=== PATIENT | female | born 1990 | race Caucasian/White ===

== ENCOUNTER 2024-10-11 07:32 | Outpatient (CLI) | payer SELFPAY ==
[2024-10-11 07:45] VITALS: BP 110/61; PULSE 83; TEMP 36.6
--- NOTE | 2024-10-11 08:18 | CRLHL7_ITS ---
For Patients: As a result of the Century Cures Act, medical imaging exams and procedure reports are released immediately into your electronic medical record. You may view this report before your referring provider. If you have questions, please contact your health care provider. Indication: Spotting. Assess cervical length and placental location. Technique: Sonography was performed limited to only that which is identified below. Comparison: None Findings: Single live intrauterine . heart rate is 142 beats per minute which is normal. The placenta is posterior. There is no previa. The placental edge is 6.5 centimeters from the IO The cervical length is 3 centimeters. The placenta is closed. Impression: 1. There is a single live intrauterine . Current position is oblique with the head superior and to maternal right. 2. heart rate is 142 beats per minute which is normal. The placenta is posterior. There is no previa. The placenta ends 6.5 centimeters from the os 3. Cervical length is 3 centimeters. The os is closed. Dictated by Adis Nichols MD @ 10/11/2024 9:26:18 AM (Electronically Signed)
[2024-10-11 08:49] LABS: Appearance Urine Clear (Clear); Bilirubin Urine Negative (Negative); Blood Urine 1+ (Negative); Color Urine Yellow (Yellow); Glucose Urine Negative (Negative); Ketones Urine Negative (Negative); Leukocyte Esterase Urine Trace (Negative); Nitrite Urine Negative (Negative); Protein Urine Negative (Negative); Urobilinogen Urine 0.2 (0.2-1.0)
[2024-10-11 09:03] LABS: Bacteria Urine Few; RBC Urine 0-2 (0-2); Squamous Epithelial Cell Urine Few (None-Few)
--- NOTE | 2024-10-11 09:30 | P.OBLDTN_ITS ---
OB - Triage/Final Diagnosis Visit Information Time Seen by Provider: 08:30 Date Seen: 10/11/24 Narrative: Naila is a 34 yo at 29.4 weeks gestation based on EDC of 12/23/2024 by LMP presenting today for spotting, brownish discharge. She reports the spotting star chanel this morning when she woke up. She denies any bright red bleeding, cramps, pain, or contractions. She is currently here from [place], recently moved last week to [place] but is here with her who is in [place] for a job for 1-2 weeks. She reports that she had a very busy week traveling and just finally is settled. She reports that she traveled via plane and took a heavy suitcase, then by car for 10+ hour with few stops. She has been very active due to moving when not in the car and doing more lifting than she feels she should or normally does. She reports she had routine care in [place] and recently had an anatomy US prior to moving. She is planning to establish care in [place] when she returns next week. She denies a negative blood type. Bleeding is mostly mucousy and brown. 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 No records are available at the time of triage and what patient has access to is in [place]. Reason for evaluation: other (Spotting) Evaluation Laboratory results: Laboratory Tests 10/11/24 Range/Units Unknown Urine Color Yellow (Yellow) Urine Appearance Clear (Clear) Urine pH 7.0 (5.0-8.5) Ur Specific Elysian 1.020 (1.000-1.030) Urine Protein Negative (Negative) Urine Glucose (UA) Negative (Negative) Urine Ketones Negative (Negative) Urine Blood 1+ A (Negative) Urine Nitrite Negative (Negative) Urine Bilirubin Negative (Negative) Urine Urobilinogen 0.2 (0.2-1.0) Ur Leukocyte Esterase Trace A (Negative) Urine RBC 0-2 (0-2) Urine WBC 2-5 (0-5) Ur Squamous Epith Cells Few (None-Few) Urine Bacteria Few A (None) Vaginal Bacterial Vaginosis Pending Vaginal Jacqui species Pending Vag C. glabrata/krusei Pending Vag T. vaginalis Pending Vital signs: Vital Signs - 24 hr 10/11/24 07:45 Temperature 97.9 F Pulse Rate 83 Blood Pressure 110/61 Comments: Vitals Reviewed Constitutional:? Alert and oriented x3 HEENT:? Normocephalic, atraumatic Neck:? Supple Abdomen:? Soft, nontender, and gravid. Vertex by Angel's, confirmed with cervical exam. Extremities:? No edema or erythema : Normal external female anatomy. On speculum exam, the vaginal mucosa is normal in appearance without visible lesions. Cervix appears irritated, no bleeding coming from os, however scant amount of bleeding noted on cervix. Small amount of brownish blood in the vaginal vault. Some white discharge present on vaginal ordaz. Swab collected for wet prep. NST: 145 bpm/moderate variability/15x15 accelerations/no decelerations/irritability present Final Diagnosis (1) Yeast infection of the vagina: Status: Acute Problem details: Yeast infection based on wet prep findings. Discussed with patient and instructed on vaginal treatment with OTC monistat x 7 days. (2) 29 weeks gestation of : Status: Acute (3) : Status: Acute (4) Spotting affecting in third trimester: Status: Acute Problem details: Brownish discharge, no bright red bleeding. Blood type was not confirmed with testing, pt believes +. Bleeding low concern due to brownish and cause likely related to yeast infection. Recommended return to care with primary provider or to establish care in [place] when she returns. All questions answered.
[2024-10-11 09:51] LABS: Bacterial Vaginosis* Negative (Negative); Candida glab/krus NOT DETECTED (No Detected); Candida species DETECTED (No Detected); Trichomonas vaginalis NOT DETECTED (No Detected)
--- NOTE | 2024-10-11 10:54 | PC.OBNST ---
NST Note NST Note Start: 10/11/24 07:35 Freq: ONCE Status: Active Protocol: Document 10/11/24 10:30 HCR (Rec: 10/11/24 10:53 HCR [id number]) NST Note 1 Para (# of births) 0 EDC 12/23/24 Gestational Age In Weeks & Days 29 Weeks & 4 Days Patient Presented with Complaint(s) of Vaginal bleeding Reactive Yes Appropriate for Gestational Age Yes RN Antonio Bragg RN Date 10/11/24 Reactive Yes Appropriate for Gestational Age Yes JOHN Eastman CNM Date 10/11/24 OB NST charge Yes Complete NST Note via Write Note Yes The provider's electronic signature indicates the NST is reactive/appropriate for gestational age. *Note to provider: If an addendum is required, open the patient's chart and click on the note under the Nurse/Allied Health tab.
== END 2024-10-11 10:36 | disposition home or self-care (01) ==
LOC: OB OUT 07:34 → OB 07:35
PROVIDERS: Visit Provider Advanced Practice Midwife
DX: O26.853 Spotting complicating pregnancy, third trimester (principal); Z3A.29 29 weeks gestation of pregnancy
CPT/HCPCS: 59025; 76815; 81001; 81003; 81513; 87086; 87481; 87661; G0463; T1013